=== PATIENT | male | born 1995 | race Caucasian/White ===

== ENCOUNTER 2016-10-31 20:01 | Emergency (ER) | payer OTHER ==
[2016-10-31 20:15] VITALS: BP 126/67; PULSE 65; RESP 16; TEMP 98.1; O2SAT 96
[2016-10-31] MEDS ORDERED: OXYCODONE/APAP 5/325 TAB ONE (20:54)
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
[2016-10-31] MEDS ORDERED: OXYCODONE/APAP 5/325 TAB PO ONE ×2 (20:57→21:55)
[2016-10-31] MEDS ORDERED: TDAP ADULT 0.5 ML INJ (BOOSTRIX) IM ONE (20:57)
== END 2016-10-31 23:10 | disposition home or self-care (01) ==
DX: S56.911A Strain of unspecified muscles, fascia and tendons at forearm level, right arm, initial encounter (principal); S43.101A Unspecified dislocation of right acromioclavicular joint, initial encounter; F17.200 Nicotine dependence, unspecified, uncomplicated; Z23 Encounter for immunization; V18.0XXA Pedal cycle driver injured in noncollision transport accident in nontraffic accident, initial encounter; Y92.89 Other specified places as the place of occurrence of the external cause; Y93.39 Activity, other involving climbing, rappelling and jumping off
CPT/HCPCS: A4565